=== PATIENT | female | born 1990 | race Caucasian/White ===

== ENCOUNTER 2024-07-03 22:42 | Inpatient (IN) | payer OTHER ==
[2024-07-04] MEDS ORDERED: MAG HYDROX/AL HYDROX/SIMETH 30 ML UNIT-DOSE CUP PO PRN (00:36)
[2024-07-04] MEDS ORDERED: IBUPROFEN 400 MG TABLET (FP) PO PRN (00:36)
[2024-07-04] MEDS ORDERED: BISMUTH SUBSALICYLATE 524 MG/30 ML PO PRN (00:36)
[2024-07-04] MEDS ORDERED: NALOXONE (NARCAN) HCL 4 MG/0.1 ML SPRAY NS PRN (00:36)
[2024-07-04] MEDS ORDERED: LOPERAMIDE HCL 2 MG CAPSULE PO PRN (00:36)
[2024-07-04] MEDS ORDERED: BENZOCAINE/MENTHOL (CHLORASEPTIC ) LOZENGE MM PRN (00:36)
[2024-07-04] MEDS ORDERED: ONDANSETRON *ODT* 4 MG TABLET SL PRN (00:36)
[2024-07-04] MEDS ORDERED: BENZONATATE 200 MG CAPSULE PO PRN (00:36)
[2024-07-04] MEDS ORDERED: NICOTINE POLACRILEX 2 MG LOZENGE BC PRN (00:36)
[2024-07-04] MEDS ORDERED: POLYETHYLENE GLYCOL (HEALTHYLAX) 3350 17 GM PACKET PO PRN (00:36)
[2024-07-04] MEDS ORDERED: guaiFENesin 600 MG TABLET.ER (FP) PO PRN (00:36)
[2024-07-04] MEDS ORDERED: DICYCLOMINE HCL 10 MG CAPSULE PO PRN (00:36)
[2024-07-04 00:47] VITALS: BMI 27.1
[2024-07-04] MEDS ORDERED: GABAPENTIN 100 MG CAPSULE ONE (01:38)
[2024-07-04] MEDS: GABAPENTIN 300 MG CAPSULE PO SCH (01:39)
[2024-07-04] MEDS ORDERED: ALBUTEROL SO4 HFA INHALER IH PRN (08:40)
[2024-07-04] MEDS: METHOCARBAMOL 500 MG TABLET PO PRN (09:49)
[2024-07-04] MEDS: hydrOXYzine PAMOATE 25 MG CAPSULE (FP) PO PRN (09:49)
[2024-07-04] MEDS: PRENATAL VITAMINS W/ FOLIC ACID TABLET (FP) PO SCH (09:49)
[2024-07-04] MEDS: NICOTINE 14 MG/24 HOURS TOPICAL PATCH TD SCH (09:50)
[2024-07-04] MEDS: NICOTINE POLACRILEX 2 MG GUM BUC PRN (09:52)
[2024-07-04] MEDS ORDERED: methaDONE HCL 10 MG TABLET (FOR DETOX USE ONLY) PO PRN (10:00)
[2024-07-04] MEDS ORDERED: diazePAM 5 MG TABLET PO PRN (10:03)
[2024-07-04] MEDS: methaDONE HCL 10 MG TABLET (FOR DETOX USE ONLY) PO ONE (10:16)
[2024-07-04] MEDS ORDERED: methaDONE HCL 10 MG TABLET PO PRN (12:25)
[2024-07-04] MEDS: SUVOREXANT 10 MG TABLET PO PRN (21:49)
[2024-07-04] MEDS: THIAMINE 100 MG TABLET PO SCH (21:49)
[2024-07-04] MEDS ORDERED: MELATONIN 5 MG TABLETS PO SCH (22:00)
[2024-07-05] MEDS: methaDONE 40 MG, methaDONE 10 MG PO ONE (09:36)
[2024-07-05 11:08] LABS: HEMATOCRIT 37.3 % (32.4-45.2); HEMOGLOBIN 11.7 GM/dL (10.7-15.3); MCH 28.6 pg (25.7-33.7); MCHC 31.4 g/dl (32.0-36.0); MEAN CELL VOLUME 90.9 fl (80-96); MEAN PLT VOLUME 9.7 fl (7.5-11.1); PLATELET COUNT 281 10^3/uL (134-434); RBC 4.11 M/mm3 (3.60-5.2); RDW 18.2 % (11.6-15.6); WHITE BLOOD COUNT 5.8 K/mm3 (4.0-10.0)
[2024-07-05 11:17] LABS: POTASSIUM 4.4 mmol/L (3.5-5.1)
[2024-07-05 11:23] LABS: CALCIUM 8.4 mg/dL (8.5-10.1)
[2024-07-05 11:24] LABS: ALBUMIN 2.8 g/dl (3.4-5.0); BLOOD UREA NITROGEN 8.7 mg/dL (7-18)
[2024-07-05 11:26] LABS: CREATININE 0.5 mg/dL (0.55-1.3)
[2024-07-05 11:27] LABS: BILIRUBIN,TOTAL 0.4 mg/dL (0.2-1)
[2024-07-05 11:29] LABS: TOT PROT 5.8 g/dl (6.4-8.2)
[2024-07-05] MEDS: ACETAMINOPHEN 325 MG TABLET (FP) PO PRN (11:44)
[2024-07-05] MEDS: MAGNESIUM HYDROX 2400MG/30ML ORAL SUSPENSION 30 ML CUP PO PRN (17:03)
[2024-07-05] MEDS: cloNIDine HCL 0.1 MG TABLET PO PRN (21:56)
[2024-07-06] MEDS ORDERED: methaDONE HCL 10 MG TABLET (FOR DETOX USE ONLY) PO ONE (10:00)
[2024-07-06] MEDS: methaDONE 40 MG, methaDONE 20 MG PO ONE (10:02)
[2024-07-06] MEDS: LACTULOSE 20 GM/30 ML UDC (FOR ORAL USE ONLY) PO SCH (12:08)
[2024-07-06] MEDS: IBUPROFEN 600 MG TABLET (FP) PO PRN (18:46)
[2024-07-07] MEDS: methaDONE 40 MG, methaDONE 30 MG PO ONE (09:32)
[2024-07-07] MEDS ORDERED: SUVOREXANT 10 MG TABLET PO PRN (22:00)
[2024-07-07] MEDS: SUVOREXANT 5 MG TABLET PO PRN (22:17)
[2024-07-08] MEDS: methaDONE HCL 40 MG DISPERSABLE TABLET PO ONE (09:14)
[2024-07-08] MEDS ORDERED: methaDONE HCL 10 MG TABLET (FOR DETOX USE ONLY) PO ONE (10:00)
[2024-07-08] MEDS: QUEtiapine FUMARATE 100 MG TABLET (FP) PO PRN (21:48)
[2024-07-09] MEDS: methaDONE 80 MG, methaDONE 10 MG PO ONE (09:41)
[2024-07-09 13:23] VITALS: BP 132/71; PULSE 85; RESP 18; TEMP 97.7
[2024-07-09] MEDS: NALOXONE (NYS OPIOID OVERDOSE PROGRAM) 4 MG/0.1 ML SPRAY NS PRN (14:54)
== END 2024-07-09 15:43 | disposition other institution (70) | DRG 773 ==
LOC: YASAS 22:42 → Y6N 07-04 01:49
PROVIDERS: ADMIT Allergy & Immunology; ATTEND Family Medicine Addiction Medicine
PROC: HZ2ZZZZ Detoxification Services for Substance Abuse Treatment (ICD-10-PCS; principal; 2024-07-04)
DX: F11.23 Opioid dependence with withdrawal (principal); F10.20 Alcohol dependence, uncomplicated; F14.20 Cocaine dependence, uncomplicated; F12.20 Cannabis dependence, uncomplicated; F17.213 Nicotine dependence, cigarettes, with withdrawal; F19.280 Other psychoactive substance dependence with psychoactive substance-induced anxiety disorder; F19.282 Other psychoactive substance dependence with psychoactive substance-induced sleep disorder; G62.9 Polyneuropathy, unspecified; J45.20 Mild intermittent asthma, uncomplicated; M41.9 Scoliosis, unspecified; R79.89 Other specified abnormal findings of blood chemistry; Z59.01 Sheltered homelessness
CPT/HCPCS: 36415; 80053; 80305; 80307; 81025; 82140; 85027; 86780; 87811; 93005; 93010

== ENCOUNTER 2024-07-09 16:08 | Inpatient (IN) | payer OTHER ==
[~2024-07-09 16:08] MED LIST: ACETAMINOPHEN 325 MG TABLET (FP) PO PRN; ALBUTEROL SO4 HFA INHALER IH PRN; BENZOCAINE/MENTHOL (CHLORASEPTIC ) LOZENGE MM PRN; BENZONATATE 200 MG CAPSULE PO PRN; IBUPROFEN 400 MG TABLET (FP) PO PRN; IBUPROFEN 600 MG TABLET (FP) PO PRN; LOPERAMIDE HCL 2 MG CAPSULE PO PRN; MAG HYDROX/AL HYDROX/SIMETH 30 ML UNIT-DOSE CUP PO PRN; MAGNESIUM HYDROX 2400MG/30ML ORAL SUSPENSION 30 ML CUP PO PRN; NALOXONE (NARCAN) HCL 4 MG/0.1 ML SPRAY NS PRN; NICOTINE POLACRILEX 2 MG GUM BUC PRN; NICOTINE POLACRILEX 2 MG LOZENGE BC PRN; POLYETHYLENE GLYCOL (HEALTHYLAX) 3350 17 GM PACKET PO PRN; guaiFENesin 600 MG TABLET.ER (FP) PO PRN; hydrOXYzine PAMOATE 25 MG CAPSULE (FP) PO PRN
[2024-07-09 16:39] VITALS: RESP 18
[2024-07-09] MEDS: THIAMINE 100 MG TABLET PO SCH (21:09)
[2024-07-09] MEDS: MELATONIN 5 MG TABLETS PO SCH (21:09)
[2024-07-09] MEDS: GABAPENTIN 300 MG CAPSULE PO SCH (21:10)
[2024-07-09] MEDS: QUEtiapine FUMARATE 100 MG TABLET (FP) PO PRN (21:11)
[2024-07-10] MEDS ORDERED: methaDONE HCL 10 MG TABLET PO SCH (06:00)
[2024-07-10] MEDS: methaDONE 80 MG, methaDONE 10 MG PO SCH (06:18)
[2024-07-10] MEDS: NICOTINE 14 MG/24 HOURS TOPICAL PATCH TD SCH (09:50)
[2024-07-10] MEDS: LACTULOSE 20 GM/30 ML UDC (FOR ORAL USE ONLY) PO SCH (09:50)
[2024-07-10] MEDS: PRENATAL VITAMINS W/ FOLIC ACID TABLET (FP) PO SCH (09:50)
[2024-07-10 10:33] VITALS: BP 125/63; PULSE 120; TEMP 98.7
== END 2024-07-10 23:00 | disposition short-term general hospital (02) | DRG 772 ==
LOC: YASAS 16:08 → Y5N 16:10
PROVIDERS: ADMIT Psychiatry & Neurology Pain Medicine; ATTEND Psychiatry & Neurology Pain Medicine
PROC: HZ42ZZZ Group Counseling for Substance Abuse Treatment, Cognitive-Behavioral (ICD-10-PCS; principal; 2024-07-09)
DX: F11.20 Opioid dependence, uncomplicated (principal); F14.20 Cocaine dependence, uncomplicated; F12.20 Cannabis dependence, uncomplicated; F17.210 Nicotine dependence, cigarettes, uncomplicated; F19.280 Other psychoactive substance dependence with psychoactive substance-induced anxiety disorder; F19.282 Other psychoactive substance dependence with psychoactive substance-induced sleep disorder; F32.A Depression, unspecified; G62.9 Polyneuropathy, unspecified; J45.20 Mild intermittent asthma, uncomplicated; M41.9 Scoliosis, unspecified; R79.89 Other specified abnormal findings of blood chemistry; R40.4 Transient alteration of awareness
CPT/HCPCS: 82962; 87811; 93005; 93010

== ENCOUNTER 2024-07-10 10:40 | Observation (INO) | payer OTHER ==
[2024-07-10] MEDS ORDERED: ACETAMINOPHEN INJECTION 100 ML ONE (11:21)
[2024-07-10] MEDS: ACETAMINOPHEN 1000 MG/100 ML BAG IVPB ONE (11:33)
[2024-07-10] MEDS ORDERED: ONDANSETRON 4 MG/2 ML VIAL ONE (11:35)
[2024-07-10] MEDS: SODIUM CHLORIDE 0.9% 500 ML INFUS.BAG IV ONE (11:41)
[2024-07-10] MEDS: ONDANSETRON 4 MG/2 ML VIAL IVPUSH ONE (11:41)
[2024-07-10 11:49] LABS: BASO % 0.3 % (0-2.0); EOS % 0.1 % (0-4.5); HEMOGLOBIN 11.5 GM/dL (10.7-15.3); LYMPH % 2.6 % (8-40); MCH 28.2 pg (25.7-33.7); MCHC 31.2 g/dl (32.0-36.0); MEAN CELL VOLUME 90.3 fl (80-96); MEAN PLT VOLUME 8.1 fl (7.5-11.1); MONO % 5.3 % (3.8-10.2); NEUT % 91.7 % (42.8-82.8); PLATELET COUNT 245 10^3/uL (134-434); RDW 17.2 % (11.6-15.6); WHITE BLOOD COUNT 19.2 K/mm3 (4.0-10.0)
[2024-07-10 12:17] LABS: ANISOCYTOSIS 1+; MACROCYTOSIS 0
[2024-07-10 12:19] LABS: POTASSIUM 3.9 mmol/L (3.5-5.1)
[2024-07-10 12:21] LABS: ALBUMIN 2.9 g/dl (3.4-5.0)
[2024-07-10 12:22] LABS: BLOOD UREA NITROGEN 9.6 mg/dL (7-18); CALCIUM 8.2 mg/dL (8.5-10.1)
[2024-07-10 12:25] LABS: CREATININE 0.6 mg/dL (0.55-1.3)
[2024-07-10 12:26] LABS: BILIRUBIN,TOTAL 0.4 mg/dL (0.2-1); TOT PROT 6.5 g/dl (6.4-8.2)
[2024-07-10] MEDS ORDERED: DEXTROSE 50%-WATER 25 GM/50 ML DISP.SYRIN ONE (13:56)
[2024-07-10] MEDS: DEXTROSE 50%-WATER - 25 GM/50 ML VIAL IVPUSH ONE (14:05)
[2024-07-10 16:53] LABS: EPI CELLS 23 /uL (0-25.1); HYALINE CASTS 1 /uL (0-3.1); PH,URINE 5.5 (5.0-8.0); URINE APPEARANCE CLEAR; URINE BACTERIA 279 /uL (0-1359); URINE BILIRUBIN NEGATIVE (NEGATIVE); URINE COLOR YELLOW; URINE GLUCOSE (UA) 1+ (NEGATIVE); URINE KETONE TRACE (NEGATIVE); URINE LEUK ESTERASE NEGATIVE (NEGATIVE); URINE NITRITE NEGATIVE (NEGATIVE); URINE PROTEIN NEGATIVE (NEGATIVE); URINE RBC 7 /uL (0-23.9); URINE WBC 47 /uL (0-25.8)
[2024-07-10 16:54] LABS: COCAINE, UR NEGATIVE (NEGATIVE); OPIATES, URI NEGATIVE (NEGATIVE); PHENCYCLIDINE,URINE NEGATIVE (NEGATIVE); URINE AMPHETAMINES NEGATIVE (NEGATIVE); URINE BARBITURATES NEGATIVE (NEGATIVE); URINE BENZODIAZEPINES NEGATIVE (NEGATIVE)
[2024-07-10 17:10] LABS: METHADONE, UR POSITIVE (NEGATIVE)
[2024-07-10] MEDS ORDERED: guaiFENesin/D-METHORPHAN HB 10 ML UNIT-DOSE CUPS PO PRN (19:21)
[2024-07-10] MEDS ORDERED: AMPICILLIN NA/SULBACTAM NA 1.5 GM VIAL ONE (20:04)
[2024-07-10] MEDS: AMPICILLIN NA/SULBACTAM NA 1.5 GM in SODIUM CHLORIDE 100 ML IVPB SCH (20:12)
[2024-07-10] MEDS ORDERED: QUEtiapine FUMARATE 50 MG TABLET ONE (21:19)
[2024-07-10] MEDS: AZITHROMYCIN IVPB 500 MG/250 ML BAG IVPB SCH (22:59)
[2024-07-10] MEDS: GABAPENTIN 300 MG CAPSULE PO SCH (23:00)
[2024-07-10] MEDS: ACETAMINOPHEN 325 MG TABLET (FP) PO PRN (23:01)
[2024-07-10] MEDS: QUEtiapine FUMARATE 100 MG TABLET (FP) PO SCH (23:06)
[2024-07-10 23:31] VITALS: BMI 27.5
[2024-07-11 09:58] LABS: BASO % 0.2 % (0-2.0); EOS % 0.6 % (0-4.5); HEMATOCRIT 35.5 % (32.4-45.2); HEMOGLOBIN 11.2 GM/dL (10.7-15.3); LYMPH % 11.6 % (8-40); MCH 28.8 pg (25.7-33.7); MCHC 31.6 g/dl (32.0-36.0); MEAN CELL VOLUME 91.3 fl (80-96); MEAN PLT VOLUME 8.6 fl (7.5-11.1); MONO % 4.1 % (3.8-10.2); NEUT % 83.5 % (42.8-82.8); PLATELET COUNT 243 10^3/uL (134-434); RBC 3.89 M/mm3 (3.60-5.2); RDW 16.6 % (11.6-15.6); WHITE BLOOD COUNT 8.9 K/mm3 (4.0-10.0)
[2024-07-11 10:17] LABS: POTASSIUM 4.2 mmol/L (3.5-5.1)
[2024-07-11 10:19] LABS: CALCIUM 8.5 mg/dL (8.5-10.1)
[2024-07-11 10:20] LABS: BLOOD UREA NITROGEN 10.8 mg/dL (7-18); MAGNESIUM 1.8 mg/dL (1.8-2.4)
[2024-07-11 10:23] LABS: CREATININE 0.6 mg/dL (0.55-1.3); PHOSPHOROUS 2.4 mg/dL (2.5-4.9)
[2024-07-11 10:24] LABS: BILIRUBIN,TOTAL 0.5 mg/dL (0.2-1); TOT PROT 6.6 g/dl (6.4-8.2)
[2024-07-11] MEDS ORDERED: QUEtiapine FUMARATE 50 MG TABLET ONE (21:15)
[2024-07-11] MEDS: QUEtiapine FUMARATE 50 MG TABLET PO SCH (21:36)
[2024-07-12 07:39] LABS: ALLENS TEST POSITIVE; ARTERIAL BLD GAS O2 SATURATION 95.7 % (95-98); ARTERIAL BLOOD GAS BASE EXCESS 2.2 mmol/L (-2-2); ARTERIAL BLOOD GAS PO2 79.1 mmHg (80-100); ARTERIAL BLOOD GAS pH 7.402 (7.350-7.450)
[2024-07-12 08:58] LABS: BASO % 0.4 % (0-2.0); EOS % 3.6 % (0-4.5); HEMATOCRIT 35.2 % (32.4-45.2); HEMOGLOBIN 11.3 GM/dL (10.7-15.3); LYMPH % 38.2 % (8-40); MCH 28.7 pg (25.7-33.7); MEAN CELL VOLUME 89.7 fl (80-96); MEAN PLT VOLUME 8.3 fl (7.5-11.1); MONO % 11.3 % (3.8-10.2); NEUT % 46.5 % (42.8-82.8); PLATELET COUNT 259 10^3/uL (134-434); RBC 3.93 M/mm3 (3.60-5.2); RDW 16.8 % (11.6-15.6); WHITE BLOOD COUNT 4.8 K/mm3 (4.0-10.0)
[2024-07-12 09:16] LABS: POTASSIUM 4.1 mmol/L (3.5-5.1)
[2024-07-12 09:18] LABS: CALCIUM 8.8 mg/dL (8.5-10.1)
[2024-07-12 09:19] LABS: BLOOD UREA NITROGEN 7.2 mg/dL (7-18); MAGNESIUM 1.9 mg/dL (1.8-2.4)
[2024-07-12 09:22] LABS: CREATININE 0.5 mg/dL (0.55-1.3)
[2024-07-12 09:24] LABS: BILIRUBIN,TOTAL 0.2 mg/dL (0.2-1); TOT PROT 6.4 g/dl (6.4-8.2)
[2024-07-12] MEDS ORDERED: BENZOCAINE/MENTH/CETYLPYRD CL 1 EACH LOZENGE MM PRN (11:17)
[2024-07-12] MEDS: ALBUTEROL SO4 2.5/IPRATROPIUM 0.5 INH SOL 3 ML VIAL.NEB. NEB SCH (12:08)
[2024-07-12] MEDS: methaDONE HCL 40 MG DISPERSABLE TABLET PO ONE (14:13)
[2024-07-12] MEDS: QUEtiapine FUMARATE 50 MG TABLET PO SCH (21:37)
[2024-07-13 08:23] VITALS: TEMP 98.6
[2024-07-13] MEDS: methaDONE 80 MG, methaDONE 10 MG PO ONE (09:49)
[2024-07-13 10:46] LABS: BASO % 1.1 % (0-2.0); EOS % 3.1 % (0-4.5); HEMATOCRIT 35.3 % (32.4-45.2); HEMOGLOBIN 10.9 GM/dL (10.7-15.3); LYMPH % 47.1 % (8-40); MCH 28.2 pg (25.7-33.7); MCHC 30.9 g/dl (32.0-36.0); MEAN CELL VOLUME 91.2 fl (80-96); MEAN PLT VOLUME 9.4 fl (7.5-11.1); MONO % 11.2 % (3.8-10.2); NEUT % 37.5 % (42.8-82.8); PLATELET COUNT 285 10^3/uL (134-434); RBC 3.87 M/mm3 (3.60-5.2); RDW 17.2 % (11.6-15.6); WHITE BLOOD COUNT 5.5 K/mm3 (4.0-10.0)
[2024-07-13 11:06] LABS: POTASSIUM 4.1 mmol/L (3.5-5.1)
[2024-07-13 11:10] LABS: CALCIUM 8.7 mg/dL (8.5-10.1)
[2024-07-13 11:11] LABS: ALBUMIN 3.1 g/dl (3.4-5.0); BLOOD UREA NITROGEN 6.9 mg/dL (7-18)
[2024-07-13 11:14] LABS: CREATININE 0.5 mg/dL (0.55-1.3)
[2024-07-13 11:15] LABS: BILIRUBIN,TOTAL 0.2 mg/dL (0.2-1)
[2024-07-13 11:16] LABS: TOT PROT 6.5 g/dl (6.4-8.2)
[2024-07-13 12:10] VITALS: BP 129/88; PULSE 70; RESP 17
== END 2024-07-13 12:06 | disposition other institution (70) ==
LOC: JER 10:40 → JERBED 15:15 → J7W 20:37
PROVIDERS: ADMIT Internal Medicine
PROC: 3E03329 Introduction of Other Anti-infective into Peripheral Vein, Percutaneous Approach (ICD-10-PCS; principal; 2024-07-10)
PROC: 3E033NZ Introduction of Analgesics, Hypnotics, Sedatives into Peripheral Vein, Percutaneous Approach (ICD-10-PCS; 2024-07-10)
PROC: 3E0337Z Introduction of Electrolytic and Water Balance Substance into Peripheral Vein, Percutaneous Approach (ICD-10-PCS; 2024-07-10)
PROC: 3E033GC Introduction of Other Therapeutic Substance into Peripheral Vein, Percutaneous Approach (ICD-10-PCS; 2024-07-10)
DX: T40.2X1A Poisoning by other opioids, accidental (unintentional), initial encounter (principal); J18.9 Pneumonia, unspecified organism; A41.9 Sepsis, unspecified organism; F11.20 Opioid dependence, uncomplicated; F10.20 Alcohol dependence, uncomplicated; F14.20 Cocaine dependence, uncomplicated; F12.20 Cannabis dependence, uncomplicated; F17.213 Nicotine dependence, cigarettes, with withdrawal; G40.909 Epilepsy, unspecified, not intractable, without status epilepticus; G62.9 Polyneuropathy, unspecified; F32.A Depression, unspecified; R50.9 Fever, unspecified; R05.9 Cough, unspecified; M41.9 Scoliosis, unspecified
CPT/HCPCS: 0241U-QW; 36415; 36600; 70450-TC; 71045-TC-FY; 71250-TC; 80053; 80307; 81003; 82803; 82962; 83690; 83735; 84100; 84703; 85025; 87086; 93005; 93010; 94640; 96374; 96375; 99285-25; G0378; J0131